=== PATIENT | female | born 1995 ===

== ENCOUNTER 2020-11-26 18:37 | Emergency (ER) | payer SELFPAY ==
[~2020-11-26] VITALS: Ht 157.5 cm; Wt 90.3 kg
[2020-11-26 18:58] VITALS: BP 119/86
[2020-11-26] MEDS ORDERED: ONDANSETRON 2MG/ML, 2ML IVPush ONE (19:00)
[2020-11-26] MEDS ORDERED: SODIUM CHLORIDE 0.9% 1,000ML IVBOLUS ONE (19:00)
[2020-11-26] MEDS ORDERED: FAMOTIDINE 20 MG/2 ML IVPush ONE (19:00)
[2020-11-26 19:45] LABS: BASOPHILS % (AUTO) 0 % (0-1); EOSINOPHILS % (AUTO) 1 % (1-7); LYMPHOCYTES % (AUTO) 16 % (22-44); MEAN CORPUSCULAR HEMOGLOBIN 29.8 pg (27.0-34.8); MEAN CORPUSCULAR HGB CONC 33.2 g/dL (32.4-35.8); MEAN PLATELET VOLUME 9.1 fL (7.4-10.4); MONOCYTES % (AUTO) 6 % (2-9); NEUTROPHILS % (AUTO) 77 % (42-75); PLATELET COUNT 227 x10^3/uL (130-400); RED BLOOD COUNT 3.97 x10^6/uL (3.82-5.3); RED CELL DISTRIBUTION WIDTH 13.4 % (9.6-15.2)
[2020-11-26 19:53] LABS: ALANINE AMINOTRANSFERASE 22 U/L (12-78); ALBUMIN 3.5 g/dL (3.4-5.0); ANION GAP 9 mmol/L (5-15); CALCIUM 9.5 mg/dL (8.5-10.1); CHLORIDE 105 mmol/L (98-107); CREATININE 0.53 mg/dL (0.55-1.02)
[2020-11-26 19:55] LABS: ALKALINE PHOSPHATASE 63 U/L (45-117); BILIRUBIN,TOTAL 0.3 mg/dL (0.2-1.0); TOTAL PROTEIN 7.8 g/dL (6.4-8.2)
[2020-11-26 20:09] LABS: MD SCAN
--- NOTE | 2020-11-26 20:35 | NUR ---
RELIEF CHARGE. NO ANSWER IN LOBBY.
--- NOTE | 2020-11-26 21:22 | NUR ---
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 Pt not in lobby for 2nd attempt.
--- NOTE | 2020-11-26 21:34 | NUR ---
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 Pt not in lobby for 3rd attempt.
== END 2020-11-26 21:43 | disposition home or self-care (01) ==
LOC: ED 21:20
DX: O26.892 Other specified pregnancy related conditions, second trimester (principal); R11.10 Vomiting, unspecified; Z3A.17 17 weeks gestation of pregnancy
CPT/HCPCS: 36415; 80053; 85025; 99283